=== PATIENT | male | born 1965 | race Two or more races ===

== ENCOUNTER 2016-09-19 14:28 | Emergency (ER) | payer MEDICAID ==
[2016-09-19 14:36] VITALS: RESP 18; TEMP 97.9; O2SAT 94
--- NOTE | 2016-09-19 14:55 | EDPHY ---
H & P Stated Complaint: persistant nosebleed. Sent here by [facility]. Time Seen by Provider: 09/19/16 14:39 HPI/ROS: CHIEF COMPLAINT: Left anterior epistaxis HISTORY OF PRESENT ILLNESS: The patient presents to the ED with intermittent left anterior epistaxis for the past day. The patient has had a history of intermittent epistaxis over the past month. He was seen in the emergency several weeks ago with epistaxis which resolved simply with Afrin. The patient is not anticoagulated. He does have a history of seizure disorder and takes Depakote. He denies recent fall or trauma. REVIEW OF SYSTEMS: A comprehensive 10 point review of systems is otherwise negative aside from elements mentioned in the history of present illness. Source: Patient Exam Limitations: No limitations - Personal History Current Tetanus Diphtheria and Acellular Pertussis (TDAP): Yes - Medical/Surgical History Hx Asthma: No Hx Chronic Respiratory Disease: No Hx Diabetes: No Hx Cardiac Disease: No Hx Renal Disease: No Hx Cirrhosis: No Hx Alcoholism: No Hx HIV/AIDS: No Hx Splenectomy or Spleen Trauma: No Other PMH: Epilepsy, hernia repair, high cholesterol - Social History Smoking Status: Former smoker - Physical Exam Exam: General Appearance: Alert, no distress Eyes: Pupils equal and round no pallor or injection ENT, Mouth: Bleeding from the left anterior septum Respiratory: There are no retractions, lungs are clear to auscultation Cardiovascular: Regular rate and rhythm Gastrointestinal: Abdomen is soft and nontender, no masses, bowel sounds normal Neurological: A&O, normal motor function, normal sensory exam, normal cranial nerves Skin: Warm and dry, no rashes Musculoskeletal: Neck is supple nontender Extremities: symmetrical, full range of motion Constitutional: Initial Vital Signs Temperature (C) 36.6 C 09/19/16 14:29 Heart Rate 74 09/19/16 14:29 Respiratory Rate 18 09/19/16 14:29 Blood Pressure 141/105 H 09/19/16 14:29 O2 Sat (%) 94 09/19/16 14:29 O2 Delivery Mode Room Air Allergies/Adverse Reactions: No Known Allergies Allergy (Unverified 09/13/16 22:10) Home Medications: Medication Instructions Recorded Carbamazepine 01/26/16 Medical Decision Making Procedures: Procedure: Epistaxis control. Indication: nosebleed not controlled by direct pressure. Risks, benefits, alternatives discussed with patient and consent obtained. The left nares was anesthetized with 4% lidocaine with epinephrine. The anterior epistaxis was identified. The patient was treated with vaso constriction and attempted silver nitrate cautery x4. The patient did have what appeared to be bleeding from a nasal polyp. The patient did have placement of a 7 cm anterior rhino rocket packing. Following the procedure the patient was re-examined and the bleeding was well controlled. The patient tolerated the procedure well. The procedure was performed by myself. ED Course/Re-evaluation: The patient presents to the ED with anterior epistaxis from what appears to be a nasal polyp. I did attempt silver nitrate cautery x4 however there continued to be ongoing bleeding. This necessitated the placement of an anterior packing. The patient has been instructed to leave the packing in for the rest of the week. He should contact our on-call ENT physician tomorrow to schedule a follow-up visit for packing removal. He has been instructed through the sociology instructor that the packing does need to be removed in the next 2-3 days. Differential Diagnosis: Differential diagnosis considered includes anterior epistaxis, posterior epistaxis, critical anemia - Data Points Medications Given: Discontinued Medications Lidocaine HCl (Lidocaine Hcl 4% Topical Solution) 4 ml TP EDNOW ONE Stop: 09/19/16 15:00 Last Admin: 09/19/16 15:04 Dose: 4 ml Oxymetazoline HCl (Afrin Nasal [place]) 2 sprays EACHNARE EDNOW ONE Stop: 09/19/16 14:59 Last Admin: 09/19/16 15:04 Dose: 2 spray Silver Nitrate/Potassium Nitrate (Silver Nitrate Applicator) 4 each TP EDNOW ONE Stop: 09/19/16 14:59 Last Admin: 09/19/16 15:04 Dose: 4 each Departure - Departure Disposition: Home, Routine, Self-Care Clinical Impression: Epistaxis Condition: Good Instructions: Nosebleed (ED) Additional Instructions: 1. Please contact the Ear Nose Throat physician you have been referred to tomorrow morning to schedule an ER follow-up visit in the next 1-2 days. If you have any problem making that appointment. Please contact the emergency department between the hours of 9 and 5:00 a.m. and asked to speak to the director of casework department. The telephone number the emergency department is [phone]. 2. Please leave the packing in until your seen by the ENT physician. The packing needs to be removed by the end of this week. 1. Por favor contacte al medico de [facility] al cual fue referido manana por la manana para programar jacinda moisés de seguimiento del cuarto de emergencias en 1-2 major. Si tiene problemas al programar la moisés. Por favor contacte al departamento de emergencias entre las 9 y 5:00 y pida hablar con la trabajadora social. El aakash de telefono del departamento de emergencias es [phone]. 2.Por favor deje el tapon nasal puesto hasta que sea visto por el medico de [facility]. El tapon nasal necesita ser removido al final de la semana. Referrals: Maciej Hines MD [Medical Doctor] - As per Instructions Print Language: Czech
[2016-09-19] MEDS ORDERED: OXYMETAZOLINE 30 ML NASAL SPRAY EACHNARE ONE (14:58)
[2016-09-19] MEDS ORDERED: SILVER NITRATE APPLICATOR 1 APPL TP ONE (14:58)
[2016-09-19] MEDS ORDERED: LIDOCAINE HCL 4% TOPICAL SOLN 50ML TP ONE (14:59)
[2016-09-19 16:30] VITALS: BP 138/90; PULSE 72
== END 2016-09-19 16:30 | disposition home or self-care (01) ==
PROC: 2Y41X5Z Packing of Nasal Region using Packing Material (ICD-10-PCS; principal; 2016-09-19)
PROC: 095KXZZ Destruction of Nasal Mucosa and Soft Tissue, External Approach (ICD-10-PCS; 2016-09-19)
DX: R04.0 Epistaxis (principal); Z87.891 Personal history of nicotine dependence

== ENCOUNTER 2017-10-30 15:54 | Observation (INO) | payer MEDICAID ==
--- NOTE | 2017-10-30 16:40 | EDPHY ---
H & P Time Seen by Provider: 10/30/17 16:31 HPI/ROS: CHIEF COMPLAINT: Perirectal swelling HISTORY OF PRESENT ILLNESS: Patient started having symptoms 5 days ago. Today he is having trouble sitting standing or walking. Swelling and tender area on the right side of his buttock just beyond his anus. No testicular symptoms. No fever or chills. No drainage. Symptoms moderate to severe. Worse with pressure or walking. REVIEW OF SYSTEMS: Eye: no change in vision ENT: no sore throat Cardiac: no chest pain or syncope Pulmonary: no cough or SOB Abdomen: No vomiting or diarrhea, no abdominal pain Musculoskeletal: no back pain Skin: no rash Neuro: no headache Constitutional: no fever : no urinary symptoms A comprehensive 10 point review of systems is otherwise negative aside from elements mentioned in the history of present illness. PAST MEDICAL HISTORY: Epilepsy and hernia repair, high cholesterol, hypertension Social history: Drove himself here, nonsmoker General Appearance: Alert and conversant, cooperative. Eyes: No scleral icterus. ENT, Mouth: Normal mucous membranes. Respiratory: Normal respiratory effort, breath sounds equal, lungs are clear to auscultation. Cardiovascular: Regular rate and rhythm. Gastrointestinal: Abdomen is soft and non tender. Patient has a fist sized right side perirectal abscess with induration and fluctuance. Neurological: Alert, face symmetric, normal motor and sensory in extremities. Skin: Warm and dry, no rashes. Musculoskeletal: No peripheral edema. Psychiatric: Not agitated. Emergency Department course/MDM: 1639: Dr. Bartlett to see the patient in the ED. 1709: Admit to surgeon, operating room later tonight, no antibiotics. Smoking Status: Former smoker Constitutional: Initial Vital Signs Temperature (C) 36.8 C 10/30/17 15:54 Heart Rate 83 10/30/17 15:54 Respiratory Rate 16 10/30/17 15:54 Blood Pressure 148/91 H 10/30/17 15:54 O2 Sat (%) 93 10/30/17 15:54 O2 Delivery Mode Room Air Allergies/Adverse Reactions: No Known Allergies Allergy (Unverified 09/13/16 22:10) Home Medications: Medication Instructions Recorded Carbamazepine 01/26/16 Metoclopramide 10/30/17 Medical Decision Making Differential Diagnosis: Differential considered including but not limited to perirectal abscess, pilonidal cyst, perirectal cellulitis, Benny gangrene. - Data Points Laboratory Results: Laboratory Results 10/30/17 16:45 10/30/17 16:45 10/30/17 10/30/17 16:45 16:45 WBC 17.52 10^3/uL H 10^3/uL (3.80-9.50) RBC 4.69 10^6/uL 10^6/uL (4.40-6.38) Hgb 15.1 g/dL g/dL (13.7-17.5) Hct 44.3 % % (40.0-51.0) MCV 94.5 fL fL (81.5-99.8) MCH 32.2 pg pg (27.9-34.1) MCHC 34.1 g/dL g/dL (32.4-36.7) RDW 12.9 % % (11.5-15.2) Plt Count 169 10^3/uL 10^3/uL (150-400) MPV 12.0 fL H fL (8.7-11.7) Neut % (Auto) 73.0 % % (39.3-74.2) Lymph % (Auto) 17.1 % % (15.0-45.0) [place] % (Auto) 8.7 % % (4.5-13.0) Eos % (Auto) 0.5 % L % (0.6-7.6) Baso % (Auto) 0.3 % % (0.3-1.7) Nucleat RBC Rel Count 0.0 % % (0.0-0.2) Absolute Neuts (auto) 12.80 10^3/uL H 10^3/uL (1.70-6.50) Absolute Lymphs (auto) 2.99 10^3/uL 10^3/uL (1.00-3.00) Absolute Monos (auto) 1.52 10^3/uL H 10^3/uL (0.30-0.80) Absolute Eos (auto) 0.08 10^3/uL 10^3/uL (0.03-0.40) Absolute Basos (auto) 0.06 10^3/uL 10^3/uL (0.02-0.10) Absolute Nucleated RBC 0.00 10^3/uL 10^3/uL (0-0.01) Immature Gran % 0.4 % % (0.0-1.1) Immature Gran # 0.07 10^3/uL 10^3/uL (0.00-0.10) Sodium 141 mEq/L mEq/L (135-145) Potassium 4.4 mEq/L mEq/L (3.5-5.2) Chloride 104 mEq/L mEq/L (97-110) Carbon Dioxide 23 mEq/l mEq/l (22-31) Anion Gap 14 mEq/L mEq/L (8-16) BUN 23 mg/dL mg/dL (7-23) Creatinine 0.8 mg/dL mg/dL (0.7-1.3) Estimated GFR > 60 Glucose 95 mg/dL mg/dL (70-100) Calcium 9.5 mg/dL mg/dL (8.5-10.4) Departure - Departure Clinical Impression: Right perirectal abscess Condition: Good
[2017-10-30 16:53] LABS: PLATELET COUNT 169 10^3/uL (150-400)
--- NOTE | 2017-10-30 17:55 | GHP ---
[f rep st] PREOP HISTORY AND PHYSICAL DATE OF ADMISSION: 10/30/2017 CHIEF COMPLAINT: Perirectal pain. HISTORY OF PRESENT ILLNESS: This is a 52-year-old, otherwise fairly healthy male who presents with r ight-sided perirectal pain since Friday. Patient states that on Friday, he noticed a small grape siz ed boil on his right buttock and that over the week, it has gotten progressively worse, exponentially so over the last 24 hours. He states that over the week, it had gotten a little bit bigger but not to the point where he was not able to work. He states that over the last 24 hours, it has gotten muc h larger and much more red than previously. He worked today where he works in a [employer] and states that it was difficult for him to stay on his feet and do his job. He does endorse subjective fevers and chills, although a formal temperature was not taken. He denies ever having any history of this in e past, states that there has been no drainage from the area. He denies having any personal or famil y history of inflammatory bowel disease, and he has never had a colonoscopy. Other than the pain at the area and the subjective chills earlier, he has no complaints. PAST MEDICAL HISTORY: Epilepsy. PAST SURGICAL HISTORY: None. CURRENT MEDICATIONS: Include multiple antiepileptics. He was previously on metoprolol but not anymo re. ALLERGIES: None. REVIEW OF SYSTEMS: A full 10-point review was performed and unless stated above, is otherwise negati ve. PHYSICAL EXAMINATION: VITAL SIGNS: Temperature 36.8, blood pressure 148/91, heart rate 83, and he i s 93% on room air. CONSTITUTIONAL: He is in mild distress. He is uncomfortable. HEENT: Eyes, his pupils are equal, round, and reactive to light and accommodation. His extraocular movements are int act. Ears, nose, mouth, throat, dry mucous membranes. Hearing normal. Ears normal. No mucosal ulce rs. CARDIOVASCULAR: Regular rate and rhythm. No murmurs or gallops. RESPIRATORY: No respiratory distress, rales, or rhonchi. GI: Abdomen soft, with normal bowel sounds. RECTAL: He has a 4 x 3 ar ea of induration on the right buttock with underlying fluctuance. It is red and significantly tender to touch. Remainder of the digital rectal exam is normal. Normal tone, normal hemorrhoids. No kyle arent communication into the anal canal. SKIN: Warm. Other than the findings on the right buttock, is otherwise normal. MUSCULOSKELETAL: Full strength. No weakness, no tenderness. NEUROLOGIC: He is alert and oriented x3. Cranial nerves 2-12 are intact. He has no weakness, no numbness. PSYCH: He is interacting appropriately. He is not anxious. He is not encephalopathic. LYMPH/HEME/IMMUNOL OGIC: No cervical or supraclavicular lymphadenopathy. LABORATORY DATA: Leukocytosis to 17,000 with left shift. Chemistry is largely unremarkable. Bedsid e ultrasound, which was personally performed and interpreted, shows at least an area of 2 x 2 abscess just deep to the right buttock, not communicating with the anal canal. ASSESSMENT AND PLAN: A 52-year-old male with a gluteal abscess. I had a discussion with the patient in the emergency department regarding our options. I offered him incision and drainage in the emerg ency department versus incision and drainage in the operating room. Given its significant tenderness , the patient elects for operative drainage. His last oral intake was earlier this morning. I discu ssed the risks, benefits, and alternatives, and he wishes to proceed. Cultures will be taken in the operating room. It will be packed and he will have a 1-night hospital stay. /[id number]/MODL
[2017-10-30] MEDS ORDERED: BUPIVACAINE/EPI 0.5% 30 ML SDV ONE (21:25)
--- NOTE | 2017-10-30 21:25 | PDANEPAE ---
ANE History of Present Illness Patient presents for ann-rectal abscess drainage ANE Past Medical History - Cardiovascular History Hx Hypertension: Yes - Pulmonary History Hx Oxygen in Use at Home: No Hx Sleep Apnea: No - Endocrine History Hx Diabetes: No ANE Review of Systems Review of Systems: ANE Patient History - Allergies Allergies/Adverse Reactions: No Known Allergies Allergy (Unverified 09/13/16 22:10) - Home Medications Home medications: home medication list seen and reviewed Home Medications: Metoprolol Succinate Xr [Toprol Xl 100 mg (*)] 100 mg PO HS 10/30/17 [Last Taken 10/29/17] PHENobarbital [Phenobarbital] 100 mg PO HS 10/30/17 [Last Taken 10/29/17] Valproic Acid [Depakene 250MG (*)] 500 mg PO DAILY 10/30/17 [Last Taken 10/29/17 ] Valproic Acid [Depakene 250MG (*)] 750 mg PO HS 10/30/17 [Last Taken 10/29/17] carBAMazepine [Tegretol] 600 mg PO HS 10/30/17 [Last Taken 10/29/17] - NPO status NPO Status: no food or drink >8 hours NPO Since - Liquids (Date): 10/30/17 NPO Since - Liquids (Time): 13:30 NPO Since - Solids (Date): 10/30/17 NPO Since - Solids (Time): 13:30 - Anes Hx Anes Hx: no prior problems - Smoking Hx Smoking Status: Former smoker ANE Labs/Vital Signs - Labs Result Diagrams: 10/30/17 16:45 10/30/17 16:45 - Vital Signs Blood Pressure: 150/98 Heart Rate: 61 Respiratory Rate: 18 O2 Sat (%): 94 Height: 170.18 cm Weight: 95.254 kg ANE Physical Exam - Airway Neck exam: FROM Mallampati Score: Class 2 Mouth exam: normal dental/mouth exam - Pulmonary Pulmonary: no respiratory distress - Cardiovascular Cardiovascular: regular rate and rhythym - ASA Status ASA Status: II ANE Anesthesia Plan Anesthesia Plan: general endotracheal anesthesia (RBA discussed)
[2017-10-30] MEDS ORDERED: PROPOFOL 200 MG/20 ML VIAL ONE (21:29)
[2017-10-30] MEDS ORDERED: fentaNYL 100 MCG/2 ML INJ ONE (21:29)
[2017-10-30] MEDS ORDERED: LIDOCAINE 2% 5 ML SDV ONE (21:30)
[2017-10-30] MEDS ORDERED: SUCCINYLCHOLINE CHLORIDE 200 MG/10 ML SYR IVP ONE (21:32)
[2017-10-30] MEDS ORDERED: DESFLURANE 240 ML BOTTLE IH ONE (21:34)
[2017-10-30] MEDS ORDERED: ONDANSETRON 4 MG/2 ML VIAL ONE (22:01)
--- NOTE | 2017-10-30 22:18 | POSTOPPROG ---
Post Op Note Date of Operation: 10/30/17 Surgeon: Bradly Bartlett Anesthesiologist: Susan Anesthesia: GET(General Endotracheal) Pre-op Diagnosis: R gluteal abscess Post-op Diagnosis: same Procedure: EUA, I&D of abscess Findings: small 2x4 area, minimal purulent material Inf/Abcess present in the surg proc area at time of surgery?: Yes Depth: Deep Incisional (Fascial) EBL: Minimal Specimen(s): fluid for culture
[2017-10-30] MEDS ORDERED: ACETAMINOPHEN 325 MG TAB PO PRN (22:19)
[2017-10-30] MEDS ORDERED: HYDROmorphONE/DILAUDID 1 MG/ML INJ IVP PRN (22:19)
[2017-10-30] MEDS ORDERED: NALOXONE HCL 0.4 MG/ML INJ IVP PRN (22:26)
[2017-10-30] MEDS ORDERED: HYDROCODONE/APAP 5/325 TAB PO PRN (22:26)
[2017-10-30] MEDS ORDERED: LR 500 ML IV PRN (22:26)
[2017-10-30] MEDS ORDERED: ONDANSETRON 4 MG/2 ML VIAL IVP PRN (22:26)
[2017-10-30] MEDS ORDERED: OXYCODONE/APAP 5/325 TAB PO PRN (22:26)
[2017-10-30] MEDS ORDERED: fentaNYL 100 MCG/2 ML INJ IVP PRN (22:26)
--- NOTE | 2017-10-30 22:27 | POSTANESTH ---
Post Anesthetic Evaluation Cardiovascular Status: Similar to Pre-Op Cond Respiratory Status: Similar to Pre-op Cond. Level of Consciousness/Mental Status: Alert and Oriented Pain Control: Adequate, Prn Tx Ordered Nausea/Vomiting Control: Adequate, Prn Tx Ordered Complications Possibly Related to Anesthesia: None Noted
[2017-10-31] MEDS ORDERED: METOPROLOL SUCCINATE XR 100 MG TAB PO SCH (00:15)
[2017-10-31] MEDS ORDERED: carBAMazepine 200 MG TAB PO SCH (00:15)
[2017-10-31] MEDS ORDERED: VALPROIC ACID 250 MG CAP PO SCH ×2 (00:30→09:00)
[2017-10-31] MEDS ORDERED: PHENOBARBITAL 4 MG/ML PO SCH (00:30)
[2017-10-31] MEDS: IBUPROFEN 600 MG TAB PO SCH ×2 (05:14→13:05)
[2017-10-31] MEDS: HYDROCODONE/APAP 5/325 TAB PO PRN ×2 (07:54→15:05)
[2017-10-31] MEDS ORDERED: FLU VACC QS 2017-18 (3YR+)/PF 0.5 ML SYR (FLUARIX QUAD) IM ONE (12:17)
--- NOTE | 2017-10-31 13:16 | PDDCSUM ---
Discharge Summary Discharge Summary: DISCHARGE SUMMARY Date of Admission October 30 Date of Discharge October 31 DISCHARGE DIAGNOSES -right gluteal abscess HOSPITAL COURSE The patient was admitted from the ED and taken to the operating room where they underwent an uneventful examination under anesthesia and incision and drainage of right gluteal abscess. They were subsequently taken to the PACU and then the general medical floor. The hospital course was uneventful, their diet was advanced to a regular diet which was well tolerated and their pain was well controlled. They were discharged home in stable condition on the afternoon of the DISCHARGE MEDICATIONS All home medications restarted, the only new medication was [place] as needed for pain DISPOSITION Home FOLLOW UP Follow up with me in the office in 10-14 days for a general post-operative visit
--- NOTE | 2017-10-31 13:23 | GOP ---
[f rep st] OPERATIVE REPORT DATE OF OPERATION: 10/30/2017 SURGEON: Bradly Bartlett MD OCEAN IMPORT REPRESENTATIVE: None. ANESTHESIA: General endotracheal. ANESTHESIOLOGIST: Dr. Davis. PREOPERATIVE DIAGNOSIS: Gluteal abscess. POSTOPERATIVE DIAGNOSIS: Gluteal abscess. PROCEDURE PERFORMED: Examination under anesthesia, and incision and drainage of right gluteal absces s. FINDINGS: Cruciate incision made over the area of greatest induration. It tracked approximately 2 c m anteriorly. Wound completely opened up and packed with iodoform gauze after washout. SPECIMENS: Fluid for culture. ESTIMATED BLOOD LOSS: 10 cc. DESCRIPTION OF PROCEDURE: The patient was greeted in the preoperative suite with the assistance of a calender roll operator. Consent was signed after explaining the risks, benefits, and alternatives. He was then brought back to the operative suite, placed on the OR table in a supine position. After all anesthe aleah machines were on and functioning, a [employer] time-out was performed. After succ essful induction of general anesthesia, the patient was appropriately placed in candy-cane stirrups w ith all pressure points appropriately padded and his perirectal and gluteal area was prepped and drap ed in typical sterile fashion. I commenced the procedure by making a cruciate incision over the area of greatest induration. Just deep to this, about 3 cc of purulent fluid was encountered. cultures of this were taken. The area was then cleaned out. It appeared to track approximately 2-3 cm anteri dnaiel. This was opened up. The wound was then irrigated with a liter of warm normal saline, packed f or hemostasis and then repacked with quarter-inch iodoform gauze over which a sterile dressing was pl aced. He was then extubated in the operative suite and taken to PACU in satisfactory condition. DRAINS: None. COUNTS: All counts were reported as correct x2. /[id number]/MODL
[2017-10-31 14:57] VITALS: BP 116/65; PULSE 74; RESP 16; TEMP 98.5; O2SAT 95
== END 2017-10-31 15:40 | disposition home or self-care (01) ==
LOC: F1N 23:02
PROVIDERS: ADMIT Surgery; ATTEND Surgery
PROC: 0J990ZZ Drainage of Buttock Subcutaneous Tissue and Fascia, Open Approach (ICD-10-PCS; principal; 2017-10-30 21:30)
DX: L02.31 Cutaneous abscess of buttock (principal); G40.909 Epilepsy, unspecified, not intractable, without status epilepticus
CPT/HCPCS: 10060; 90471; 99285; G0378; G0008; J0330; J2405; J2704; J3010

== ENCOUNTER 2017-11-03 13:20 | Emergency (ER) | payer MEDICAID ==
[2017-11-03 13:30] VITALS: TEMP 96.8
--- NOTE | 2017-11-03 14:50 | EDPHY ---
H & P Stated Complaint: treated for perirectal abcess recently treat now concerned of another area Time Seen by Provider: 11/03/17 14:49 - Personal History Current Tetanus/Diphtheria Vaccine: Unsure Current Tetanus Diphtheria and Acellular Pertussis (TDAP): Unsure - Medical/Surgical History Hx Asthma: No Hx Chronic Respiratory Disease: No Hx Diabetes: No Hx Cardiac Disease: No Hx Renal Disease: No Hx Cirrhosis: No Hx Alcoholism: No Hx HIV/AIDS: No Hx Splenectomy or Spleen Trauma: No Other PMH: Epilepsy, hernia repair, high cholesterol, HTN. - Social History Smoking Status: Former smoker Constitutional: Initial Vital Signs Temperature (C) 36.0 C 11/03/17 13:26 Heart Rate 89 11/03/17 13:26 Respiratory Rate 16 11/03/17 13:26 Blood Pressure 123/100 H 11/03/17 13:26 O2 Sat (%) 97 11/03/17 13:26 O2 Delivery Mode Room Air Allergies/Adverse Reactions: No Known Allergies Allergy (Verified 11/03/17 13:23) Home Medications: Medication Instructions Recorded Metoprolol Succinate Xr [Toprol Xl 100 mg PO HS 10/30/17 100 mg (*)] PHENobarbital [Phenobarbital] 100 mg PO HS 10/30/17 Valproic Acid [Depakene 250MG (*)] 500 mg PO DAILY 10/30/17 Valproic Acid [Depakene 250MG (*)] 750 mg PO HS 10/30/17 carBAMazepine [Tegretol] 600 mg PO HS 10/30/17 Hydrocodone/APAP 5/325 [[place] 1 - 2 tab PO Q4HRS PRN #20 tab 10/31/17 5/325 (*)] Medical Decision Making ED Course/Re-evaluation: CHIEF COMPLAINT: Anal pain HISTORY OF PRESENT ILLNESS: This 52-year-old gentleman had a wreck abscess drained by Dr. Bradly Guillen on . He went home on Friday and thought he was doing quite well until the last couple of days when he feels like he is getting more pain and more swelling. He took a shower this morning and felt a large mass in the area where the drainage occurred. He came in for further evaluation. He denies fevers and chills. It hurts tremendously to sit but he is comfortable if he is lying down not putting pressure on it. He denies any other symptoms. REVIEW OF SYSTEMS: A 10 point review of systems was performed and is negative with the exception of the elements mentioned in the history of present illness. PHYSICAL EXAM: HR, BP, O2 Sat, RR. Temp noted General Appearance: Alert, well hydrated, appropriate, and non-toxic appearing. Head: Atraumatic without scalp tenderness or obvious injury Eyes: Pupils equal, round, reactive to light and accommodation, EOMI, no trauma , no injection. Ears: Clear bilaterally, no perforation, normal landmarks Nose: Atraumatic, no rhinorrhea, clear. Throat: There is no erythema or exudates, no lesions, normal tonsils, mucus membranes moist. Neck: Supple, 2+ carotid upstroke, nontender, no lymphadenopathy. Respiratory: No retractions, no distress, no wheezes, and no accessory muscle use. Lungs are clear to auscultation bilaterally. Cardiovascular: Regular rate and rhythm, no murmurs, rubs, or gallops. Bilateral carotid, radial, dorsalis pedis, and posterior tibial pulses intact. Good capillary refill all extremities. Gastrointestinal: Abdomen is soft, nontender, non-distended, no masses, no rebound, no guarding, no peritoneal signs. Musculoskeletal: Normal active ROM of all extremities, atraumatic. Neurological: Alert, appropriate, and interactive. The patient has normal DTRs and non-focal cranial nerves, motor, sensory, and cerebellar exam. Skin: Large reaccumulation of the perirectal abscess with erythema. I cannot express pus from the incision site. Swollen groin nodes in the femoral area on the right and the left. Otherwise, No rashes, good turgor, no nodules on palpation. Past medical history: Seizure disorder Past surgical history: Perirectal abscess drainage Family history: Noncontributory Social history: , employed, does not abuse tobacco drugs or alcohol DIFFERENTIAL DIAGNOSIS: Includes not limited to: Internal hemorrhoid, external thrombosed hemorrhoid, perirectal abscess, fistula MEDICAL DECISION MAKING: This patient has a reaccumulation of his rectal abscess on physical exam. I have given this patient 1 g of ertapenem and checking some labs. I've paged the surgeon who performed the procedure. 1615: Dr. Bartlett has seen this patient and cleaned the abscess. He has prescribed the patient an antibiotic. Return precautions provided; patient is comfortable with this plan. - Data Points Laboratory Results: Laboratory Results 11/03/17 15:30 11/03/17 15:30 18 18 15:30 15:30 WBC 12.67 10^3/uL H 10^3/uL (3.80-9.50) RBC 5.16 10^6/uL 10^6/uL (4.40-6.38) Hgb 16.6 g/dL g/dL (13.7-17.5) Hct 49.2 % % (40.0-51.0) MCV 95.3 fL fL (81.5-99.8) MCH 32.2 pg pg (27.9-34.1) MCHC 33.7 g/dL g/dL (32.4-36.7) RDW 12.7 % % (11.5-15.2) Plt Count 186 10^3/uL 10^3/uL (150-400) MPV 11.6 fL fL (8.7-11.7) Neut % (Auto) 73.3 % % (39.3-74.2) Lymph % (Auto) 17.0 % % (15.0-45.0) [place] % (Auto) 7.6 % % (4.5-13.0) Eos % (Auto) 1.1 % % (0.6-7.6) Baso % (Auto) 0.5 % % (0.3-1.7) Nucleat RBC Rel Count 0.0 % % (0.0-0.2) Absolute Neuts (auto) 9.29 10^3/uL H 10^3/uL (1.70-6.50) Absolute Lymphs (auto) 2.16 10^3/uL 10^3/uL (1.00-3.00) Absolute Monos (auto) 0.96 10^3/uL H 10^3/uL (0.30-0.80) Absolute Eos (auto) 0.14 10^3/uL 10^3/uL (0.03-0.40) Absolute Basos (auto) 0.06 10^3/uL 10^3/uL (0.02-0.10) Absolute Nucleated RBC 0.00 10^3/uL 10^3/uL (0-0.01) Immature Gran % 0.5 % % (0.0-1.1) Immature Gran # 0.06 10^3/uL 10^3/uL (0.00-0.10) Sodium 146 mEq/L H mEq/L (135-145) Potassium 4.5 mEq/L mEq/L (3.5-5.2) Chloride 107 mEq/L mEq/L (97-110) Carbon Dioxide 25 mEq/l mEq/l (22-31) Anion Gap 14 mEq/L mEq/L (8-16) BUN 20 mg/dL mg/dL (7-23) Creatinine 0.7 mg/dL mg/dL (0.7-1.3) Estimated GFR > 60 Glucose 96 mg/dL mg/dL (70-100) Calcium 9.7 mg/dL mg/dL (8.5-10.4) Medications Given: Discontinued Medications Ertapenem (Invanz) 1 gm IVP EDNOW ONE PRN Reason: Protocol Stop: 11/03/17 14:59 Last Admin: 11/03/17 15:28 Dose: 1 gm Departure - Departure Disposition: Home, Routine, Self-Care Clinical Impression: Post op infection Qualifiers: Encounter type: initial encounter Qualified Code(s): T81.4XXA - Infection following a procedure, initial encounter Condition: Good Instructions: . Infection Prevention, Abscess (ED) Additional Instructions: 1. Follow up with Dr. Bartlett 2. Take the antibiotics as prescribed. 3. Return to the Emergency Department for fever, redness, discharge from wound, increasing pain or other worsening of condition. Referrals: Bradly Bartlett MD [Medical Doctor] - As per Instructions
[2017-11-03] MEDS ORDERED: ERTAPENEM 1 GM VIAL IVP ONE (14:58)
[2017-11-03 15:40] LABS: PLATELET COUNT 186 10^3/uL (150-400)
[2017-11-03 16:42] VITALS: BP 124/85; PULSE 76; RESP 18; O2SAT 91
--- NOTE | 2017-11-06 14:15 | GCON ---
[f rep st] CONSULTATION DATE OF CONSULTATION: 11/03/2017 CHIEF COMPLAINT: Buttock pain. HISTORY OF PRESENT ILLNESS: This is a 52-year-old male who I took to the operating room this past for incision and drainage of a right gluteal abscess. The area was subsequently opened, packe d, and he was sent home the next day with instructions to remove the packing and follow up in clinic the following week. He presents to the emergency department today complaining of worsening pain and drainage at this site, stating that for the past couple of days he felt well, although started to fee l worse over the last 24 hours. He denies having any fevers or chills, but states that the pain that he was experiencing previously had recurred. Other than the pain and the drainage at the site, he h as no complaints. PAST MEDICAL HISTORY: Epilepsy. PAST SURGICAL HISTORY: I and D of right buttock performed last . CURRENT MEDICATIONS: Include multiple antiepileptics. ALLERGIES: None. REVIEW OF SYSTEMS: A full 10-point review was performed. PHYSICAL EXAMINATION: VITAL SIGNS: In the emergency department, temperature 36 even, blood pressure 123/100, heart rate 89, and he is 97% on room air. CONSTITUTIONAL: He is alert and oriented, not a nxious, but somewhat uncomfortable. HEENT: His pupils are equal, round, and reactive to light and a ccommodation. His extraocular movements are intact. Ears, nose, mouth, throat: Dry mucous membrane s. Hearing normal. Ears normal with no mucosal ulcers. CARDIOVASCULAR: He has a regular rate and rhythm without any murmurs. RESPIRATORY: He has no respiratory distress. No rales or rhonchi GI: Abdomen is soft. Normal bowel sounds. Nondistended. RECTAL: The area of previous incision and adriana inage on the right buttock is open and draining some purulent type fluid. Digital inspection of this shows that the tract remains open. I do not appreciate any unopened fluid cavities. It appears as though the tract is narrowed and likely not draining appropriately. SKIN: Warm. Other than the fin dings on the right buttock, is otherwise normal. MUSCULOSKELETAL: Full strength. No weakness. No tenderness. NEUROLOGIC: He is alert and oriented. His cranial nerves 2-12 are intact. He has no w eakness or numbness. PSYCHIATRIC: He is interacting appropriately. He is not anxious. He is not e ncephalopathic. LYMPHATIC/HEMATOLOGIC/IMMUNOLOGIC: No cervical, groin, or supraclavicular lymphadeno lamar is appreciated. LABORATORY DATA: Leukocytosis to 12,000. This is improved from 18,000 previously. H and H unremark able. BMP is unremarkable. ASSESSMENT/PLAN: 52-year-old male status post incision and drainage of right gluteal abscess. After evaluation of the patient in the emergency department, it appears as though it is not getting clean appropriately on an outpatient basis, likely secondary to the long tract, which after removal of the packing has not necessarily re-sealed, but is likely not getting drained appropriately. After discus asad with the patient, I feel that the best next step is to numb that area up and unroof the remainde r of the cavity so that they can drain appropriately as I do not appreciate any other areas of absces s or infection. He is in agreement with this. In the emergency department, I subsequently numbed the area up after performing a Organi zation time-out and prepping the area with Betadine and numbed it with 1% lidocaine. After successfu l anesthetization, I unroof the remainder of the cavity approximately 2 cm sharply. I then irrigated the area with 500 cc of sterile saline. Hemostasis was achieved with gentle pressure. The wound wa s then packed with sterile wet gauze, over which a dry dressing was placed. The patient tolerated th e procedure well. Estimated blood loss was 5 cc. No additional specimens were taken. The patient will subsequently be discharged home on oral antibiotics. I have asked him to shower, le ave the packing in place, and follow up with me in clinic in 2 days time, at which point in time, I w ill take the packing out, wash the area, and re-evaluate. He is in understanding of this. This whol e examination was performed with the aid of a live records supervisor so that the patient could understand ex actly what was happening. /[id number]/MODL
== END 2017-11-03 16:51 | disposition home or self-care (01) ==
DX: T81.4XXA Infection following a procedure, initial encounter (principal); I10 Essential (primary) hypertension; Z87.891 Personal history of nicotine dependence; Y82.8 Other medical devices associated with adverse incidents
CPT/HCPCS: 96374; J1335

== ENCOUNTER 2018-03-04 20:07 | Emergency (ER) | payer MEDICAID ==
[2018-03-04] MEDS ORDERED: NS 1,000 ML IV ONE ×2 (20:33)
[2018-03-04] MEDS ORDERED: ONDANSETRON 4 MG/2 ML VIAL IVP ONE (20:33)
--- NOTE | 2018-03-04 20:37 | EDPHY ---
H & P Stated Complaint: fever and diarrhea since lastnight Time Seen by Provider: 03/04/18 20:22 HPI/ROS: CHIEF COMPLAINT: Diarrhea, left thumb pain HISTORY OF PRESENT ILLNESS: The patient is a 52-year-old man who comes to the emergency department complaining of diarrhea for the last day. He states that he has not vomited but has felt nauseous. He has had several episodes of nonbloody diarrhea. He feels dehydrated. He has not been traveling out of the country. No fever. No rash. He does not recall eating any suspicious foods. He did have rotator cuff surgery about 2 weeks ago. He also complains of a splinter that is been in his left thumb for 3 days and is becoming increasingly painful. He states that it is right at the ulnar aspect of his finger nail. He is requesting that it be drained. It is very tender. REVIEW OF SYSTEMS: Constitutional: denies: chills, fever, recent illness, recent injury EENTM: denies: blurred vision, double vision, nose congestion Respiratory: denies: cough, shortness of breath Cardiac: denies: chest pain, irregular heart rate, lightheadedness, palpitations Gastrointestinal/Abdominal: See above denies: abdominal pain, vomiting, blood streaked stools Genitourinary: denies: dysuria, frequency, hematuria, pain Musculoskeletal: See above Skin: denies: lesions, rash, jaundice, bruising Neurological: denies: headache, numbness, paresthesia, tingling, dizziness, weakness Hematologic/Lymphatic: denies: blood clots, easy bleeding, easy bruising Immunologic/allergic: denies: HIV/AIDS, transplant EXAM: GENERAL: Well-appearing, well-nourished and in no acute distress. HEAD: Atraumatic, normocephalic. EYES: Pupils equal round and reactive to light, extraocular movements intact, sclera anicteric, conjunctiva are normal. ENT: TMs normal, nares patent, oropharynx clear without exudates. Moist mucous membranes. NECK: Normal range of motion, supple without lymphadenopathy or JVD. LUNGS: Breath sounds clear to auscultation bilaterally and equal. No wheezes rales or rhonchi. HEART: Regular rate and rhythm without murmurs, rubs or gallops. ABDOMEN: Soft, nontender, normoactive bowel sounds. No guarding, no rebound. No masses appreciated. BACK: No CVA tenderness, no spinal tenderness, step-offs or deformities EXTREMITIES: Left thumb with tenderness to the lateral nail/skin junction. No obvious erythema or fluctuance. Normal range of motion, no pitting or edema. No clubbing or cyanosis. NEUROLOGICAL: Cranial nerves II through XII grossly intact. Normal speech, normal gait. 5/5 strength, normal movement in all extremities, normal sensation PSYCH: Normal mood, normal affect. SKIN: Warm, dry, normal turgor, no visible rashes or lesions. Source: Patient - Personal History Current Tetanus/Diphtheria Vaccine: No Current Tetanus Diphtheria and Acellular Pertussis (TDAP): No - Medical/Surgical History Hx Asthma: No Hx Chronic Respiratory Disease: No Hx Diabetes: No Hx Cardiac Disease: No Hx Renal Disease: No Hx Cirrhosis: No Hx Alcoholism: No Hx HIV/AIDS: No Hx Splenectomy or Spleen Trauma: No Other PMH: Epilepsy, hernia repair, high cholesterol, HTN. - Family History Significant Family History: No pertinent family hx - Social History Smoking Status: Former smoker Alcohol Use: Sober Drug Use: None Constitutional: Initial Vital Signs Temperature (C) 37.6 C 03/04/18 20:12 Heart Rate 125 H 03/04/18 20:12 Respiratory Rate 16 03/04/18 20:12 Blood Pressure 137/87 H 03/04/18 20:12 O2 Sat (%) 93 03/04/18 20:12 O2 Delivery Mode Room Air O2 (L/minute) 1 Allergies/Adverse Reactions: No Known Allergies Allergy (Verified 03/04/18 20:15) Home Medications: Medication Instructions Recorded Metoprolol Succinate Xr [Toprol Xl 100 mg PO HS 10/30/17 100 mg (*)] PHENobarbital [Phenobarbital] 100 mg PO HS 10/30/17 Valproic Acid [Depakene 250MG (*)] 500 mg PO DAILY 10/30/17 Valproic Acid [Depakene 250MG (*)] 750 mg PO HS 10/30/17 carBAMazepine [Tegretol] 600 mg PO HS 10/30/17 Metoclopramide [Reglan 10 mg tab 10 mg PO BID PRN 7 Days tab 03/04/18 (RX)] Medical Decision Making Procedures: I provided the patient with a digital block 1% lidocaine for anesthesia. I then drained the paronychia of his thumb. 1 cc of purulence was obtained. A small splinter was removed successfully. The patient tolerated the procedure well. ED Course/Re-evaluation: 10 p.m. the patient is feeling much better. He is asking to go home. He has not had any more episodes of nausea or diarrhea. He has been hydrated. He is requesting nausea medicine to take at home as well as headache medicine. He states that he has developed a mild headache. He is also requesting a note for work. Differential Diagnosis: Partial list of the Differential diagnosis considered include but were not limited to; gastritis, food poisoning, dehydration and although unlikely based on the history and physical exam, I also considered obstruction, ischemia, appendicitis, diverticulitis. I discussed these differential diagnoses and the plan with the patient as well as the usual and expected course. The patient understands that the diagnosis is provisional and that in medicine we are not always correct and that further workup is often warranted. Usual and customary warnings were given. All of the patient's questions were answered. The patient was instructed to return to the emergency department should the symptoms at all worsen or return, otherwise to followup with the physician as we discussed. - Data Points Laboratory Results: Laboratory Results 03/04/18 20:38 03/04/18 20:38 Medications Given: Discontinued Medications Acetaminophen (Tylenol) 1,000 mg PO EDNOW ONE Stop: 03/04/18 21:30 Last Admin: 03/04/18 21:32 Dose: 1,000 mg Sodium Chloride (Ns) 1,000 mls @ 0 mls/hr IV EDNOW ONE; Wide Open PRN Reason: Protocol Stop: 03/04/18 20:34 Last Admin: 03/04/18 20:38 Dose: 1,000 mls Sodium Chloride (Ns) 1,000 mls @ 0 mls/hr IV EDNOW ONE; Wide Open PRN Reason: Protocol Stop: 03/04/18 20:34 Last Admin: 03/04/18 20:39 Dose: 1,000 mls Ondansetron HCl (Zofran) 4 mg IVP EDNOW ONE Stop: 03/04/18 20:34 Last Admin: 03/04/18 20:44 Dose: 4 mg Departure - Departure Disposition: Home, Routine, Self-Care Clinical Impression: Dehydration Diarrhea Qualifiers: Diarrhea type: unspecified type Qualified Code(s): R19.7 - Diarrhea, unspecified Condition: Fair Instructions: Metoclopramide (By mouth), Dehydration (ED), Acute Diarrhea (ED) Referrals: Yasmin Ayala [Primary Care Provider] - 2-3 days, if not improved Stand Alone Forms: Work Excuse Prescriptions: Metoclopramide [Reglan 10 mg tab (RX)] 10 mg PO BID PRN 7 Days tab PRN Reason: *Nausea & Vomiting
[2018-03-04 20:54] LABS: PLATELET COUNT 184 10^3/uL (150-400)
[2018-03-04] MEDS ORDERED: ACETAMINOPHEN 500 MG TAB PO ONE (21:29)
[2018-03-04 22:24] VITALS: BP 138/94
== END 2018-03-04 22:37 | disposition home or self-care (01) ==
DX: R19.7 Diarrhea, unspecified (principal); E86.0 Dehydration; E86.9 Volume depletion, unspecified; I10 Essential (primary) hypertension; Z87.891 Personal history of nicotine dependence
CPT/HCPCS: 96374; J2405

== ENCOUNTER 2018-06-25 15:36 | Emergency (ER) | payer MEDICAID ==
--- NOTE | 2018-06-25 16:06 | EDPHY ---
H & P Time Seen by Provider: 06/25/18 15:48 HPI/ROS: Chief complaint. Rib pain HPI. 53-year-old male presents with right lateral chest pain for 4 days. He denies trauma or injury. Does not think he had a seizure as a cause. It hurts to press on and it hurts to move and hurts to take a deep breath. He feels short of breath. It has gotten worse since yesterday. No fever cough. No nausea vomiting or diarrhea. No leg symptoms. No similar symptoms previously. ROS 10 systems were reviewed and negative with the exception of the elements mentioned in the history of present illness Past Medical/Surgical History: Seizure disorder, hernia repair, dyslipidemia, hypertension Social History: , nonsmoker, no alcohol Smoking Status: Former smoker Physical Exam: General Appearance: Alert pleasant well-developed male mild distress vital signs are stable Eyes: Pupils equal and round no pallor or injection. ENT, Mouth: Mucous membranes are moist. Respiratory: There are no retractions, lungs are clear to auscultation. Cardiovascular: Regular rate and rhythm. Gastrointestinal: Abdomen is soft and nontender, no masses, bowel sounds normal. Neurological: Awake and alert, sensory and motor exams grossly normal. Skin: Warm and dry, no rashes. Musculoskeletal: Neck is supple nontender. Tender to palpation right lateral rib line at approximately T11. Extremities symmetrical, full range of motion. Psychiatric: Patient is oriented X 3, there is no agitation. Constitutional: Initial Vital Signs Temperature (C) 36.5 C 06/25/18 15:41 Heart Rate 71 06/25/18 15:41 Respiratory Rate 16 06/25/18 15:41 Blood Pressure 112/70 06/25/18 15:41 O2 Sat (%) 94 06/25/18 15:41 O2 Delivery Mode Room Air Allergies/Adverse Reactions: No Known Allergies Allergy (Verified 06/25/18 15:41) Home Medications: Medication Instructions Recorded Metoprolol Succinate Xr [Toprol Xl 100 mg PO HS 10/30/17 100 mg (*)] PHENobarbital [Phenobarbital] 100 mg PO HS 10/30/17 Valproic Acid [Depakene 250MG (*)] 500 mg PO DAILY 10/30/17 Valproic Acid [Depakene 250MG (*)] 750 mg PO HS 10/30/17 carBAMazepine [Tegretol] 600 mg PO HS 10/30/17 Metoclopramide [Reglan 10 mg tab 10 mg PO BID PRN 7 Days tab 03/04/18 (RX)] Medical Decision Making - Diagnostics Imaging Results: Imaging Impressions Chest X-Ray 06/25/18 16:15 Impression: Stable since March 2015. Nothing acute identified. Chest x-ray interpreted by me appears nonacute. No fracture or pneumothorax seen Procedures: IV normal saline ED Course/Re-evaluation: Re-evaluation 5:50 p.m.. Patient is stable. The patient and I discussed imaging and lab results. We discussed treatment plan including criteria for return importance follow-up further evaluation. He expresses understanding and agreement Differential Diagnosis: I considered rib fracture, pneumothorax, pulmonary embolus, abnormal liver function, kidney stone, kidney infection - Data Points Laboratory Results: Laboratory Results 06/25/18 16:30 06/25/18 16:30 06/25/18 06/25/18 06/25/18 16:30 16:30 16:30 WBC 10.49 10^3/uL H 10^3/uL (3.80-9.50) RBC 5.04 10^6/uL 10^6/uL (4.40-6.38) Hgb 16.0 g/dL g/dL (13.7-17.5) Hct 46.4 % % (40.0-51.0) MCV 92.1 fL fL (81.5-99.8) MCH 31.7 pg pg (27.9-34.1) MCHC 34.5 g/dL g/dL (32.4-36.7) RDW 12.5 % % (11.5-15.2) Plt Count 148 10^3/uL L 10^3/uL (150-400) MPV 11.3 fL fL (8.7-11.7) Neut % (Auto) 52.1 % % (39.3-74.2) Lymph % (Auto) 35.9 % % (15.0-45.0) [place] % (Auto) 10.2 % % (4.5-13.0) Eos % (Auto) 1.0 % % (0.6-7.6) Baso % (Auto) 0.5 % % (0.3-1.7) Nucleat RBC Rel Count 0.0 % % (0.0-0.2) Absolute Neuts (auto) 5.46 10^3/uL 10^3/uL (1.70-6.50) Absolute Lymphs (auto) 3.77 10^3/uL H 10^3/uL (1.00-3.00) Absolute Monos (auto) 1.07 10^3/uL H 10^3/uL (0.30-0.80) Absolute Eos (auto) 0.11 10^3/uL 10^3/uL (0.03-0.40) Absolute Basos (auto) 0.05 10^3/uL 10^3/uL (0.02-0.10) Absolute Nucleated RBC 0.00 10^3/uL 10^3/uL (0-0.01) Immature Gran % 0.3 % % (0.0-1.1) Immature Gran # 0.03 10^3/uL 10^3/uL (0.00-0.10) D-Dimer 0.41 ug/mLFEU ug/mLFEU (0.00-0.50) Sodium 139 mEq/L mEq/L (135-145) Potassium 4.8 mEq/L mEq/L (3.3-5.0) Chloride 100 mEq/L mEq/L (97-110) Carbon Dioxide 25 mEq/l mEq/l (22-31) Anion Gap 14 mEq/L mEq/L (6-14) BUN 21 mg/dL mg/dL (7-23) Creatinine 0.9 mg/dL mg/dL (0.7-1.3) Estimated GFR > 60 Glucose 94 mg/dL mg/dL (70-100) Calcium 9.7 mg/dL mg/dL (8.5-10.4) Total Bilirubin 0.4 mg/dL mg/dL (0.1-1.4) Conjugated Bilirubin 0.4 mg/dL mg/dL (0.0-0.5) Unconjugated Bilirubin 0.0 mg/dL mg/dL (0.0-1.1) AST 26 IU/L IU/L (17-59) ALT 29 IU/L IU/L (21-72) Alkaline Phosphatase 105 IU/L IU/L (38-126) Total Protein 7.6 g/dL g/dL (6.3-8.2) Albumin 4.3 g/dL g/dL (3.5-5.0) Urine Color Urine Appearance Urine pH Ur Specific [place] Urine Protein Urine Ketones Urine Blood Urine Nitrate Urine Bilirubin Urine Urobilinogen Ur Leukocyte Esterase Urine RBC Urine WBC Ur Epithelial Cells Urine Mucus Urine Glucose 06/25/18 16:21 WBC RBC Hgb Hct MCV MCH MCHC RDW Plt Count MPV Neut % (Auto) Lymph % (Auto) [place] % (Auto) Eos % (Auto) Baso % (Auto) Nucleat RBC Rel Count Absolute Neuts (auto) Absolute Lymphs (auto) Absolute Monos (auto) Absolute Eos (auto) Absolute Basos (auto) Absolute Nucleated RBC Immature Gran % Immature Gran # D-Dimer Sodium Potassium Chloride Carbon Dioxide Anion Gap BUN Creatinine Estimated GFR Glucose Calcium Total Bilirubin Conjugated Bilirubin Unconjugated Bilirubin AST ALT Alkaline Phosphatase Total Protein Albumin Urine Color YELLOW Urine Appearance CLEAR Urine pH 7.0 (5.0-7.5) Ur Specific [place] 1.018 (1.002-1.030) Urine Protein NEGATIVE (NEGATIVE) Urine Ketones NEGATIVE (NEGATIVE) Urine Blood NEGATIVE (NEGATIVE) Urine Nitrate NEGATIVE (NEGATIVE) Urine Bilirubin NEGATIVE (NEGATIVE) Urine Urobilinogen NEGATIVE EU EU (0.2-1.0) Ur Leukocyte Esterase NEGATIVE (NEGATIVE) Urine RBC 1-3 /hpf /hpf (0-3) Urine WBC 1-3 /hpf /hpf (0-3) Ur Epithelial Cells NONE SEEN /lpf /lpf (NONE-1+) Urine Mucus TRACE /lpf /lpf (NONE-1+) Urine Glucose NEGATIVE (NEGATIVE) Medications Given: Discontinued Medications Sodium Chloride (Ns) 1,000 mls @ 0 mls/hr IV ONCE ONE; Wide Open PRN Reason: Protocol Stop: 06/25/18 16:16 Last Admin: 06/25/18 16:37 Dose: 1,000 mls Departure - Departure Disposition: Home, Routine, Self-Care Clinical Impression: Chest pain Qualifiers: Chest pain type: chest pain on breathing Qualified Code(s): R07.1 - Chest pain on breathing; R07.81 - Pleurodynia Condition: Good Instructions: Chest Wall Pain (ED) Additional Instructions: Heat to sore area of chest wall. Tylenol 1000 mg every 4-6 hours, ibuprofen 600 mg every 6 hr as needed for discomfort Return for worsening symptoms Recheck in 2-3 days if not improving Referrals: Yasmin Ayala [Primary Care Provider] - 2-3 days, if not improved
[2018-06-25] MEDS ORDERED: NS 1,000 ML IV ONE (16:15)
[2018-06-25 16:39] LABS: PLATELET COUNT 148 10^3/uL (150-400)
[2018-06-25 18:06] VITALS: BP 123/66
== END 2018-06-25 18:05 | disposition home or self-care (01) ==
DX: R07.81 Pleurodynia (principal); E86.9 Volume depletion, unspecified

== ENCOUNTER 2018-10-21 18:51 | Emergency (ER) | payer MEDICAID ==
--- NOTE | 2018-10-21 19:07 | EDPHY ---
H & P Stated Complaint: intermiitant right sided CP .SOB . CP for 3 or 4 days Time Seen by Provider: 10/21/18 19:07 HPI/ROS: CHIEF COMPLAINT: [ ] HISTORY OF PRESENT ILLNESS: [Need 4: Location, Duration, Severity, Quality, Context, Timing Modifying Factors, Associated S&S] REVIEW OF SYSTEMS: A comprehensive 10 point review of systems is otherwise negative aside from elements mentioned in the history of present illness. - Personal History Current Tetanus/Diphtheria Vaccine: Unsure Current Tetanus Diphtheria and Acellular Pertussis (TDAP): Unsure - Medical/Surgical History Hx Asthma: No Hx Chronic Respiratory Disease: No Hx Diabetes: No Hx Cardiac Disease: Yes Hx Renal Disease: No Hx Cirrhosis: No Hx Alcoholism: No Hx HIV/AIDS: No Hx Splenectomy or Spleen Trauma: No Other PMH: Epilepsy, hernia repair, high cholesterol, HTN. - Social History Smoking Status: Former smoker - Physical Exam Exam: General Appearance: [Alert, no distress] Eyes: [Pupils equal and round no pallor or injection] ENT, Mouth: [Mucous membranes moist] Respiratory: [There are no retractions, lungs are clear to auscultation] Cardiovascular: [Regular rate and rhythm] Gastrointestinal: [Abdomen is soft and nontender, no masses, bowel sounds normal] Neurological: [A&O, normal motor function, normal sensory exam, normal cranial nerves] Skin: [Warm and dry, no rashes] Musculoskeletal: [Neck is supple nontender] Extremities: [symmetrical, full range of motion] Psychiatric: [Patient is oriented X 3, there is no agitation] Constitutional: Initial Vital Signs Temperature (C) 36.6 C 10/21/18 18:53 Heart Rate 63 10/21/18 18:53 Respiratory Rate 16 10/21/18 18:53 Blood Pressure 150/89 H 10/21/18 18:53 O2 Sat (%) 94 10/21/18 18:53 O2 Delivery Mode Room Air Allergies/Adverse Reactions: No Known Allergies Allergy (Verified 10/21/18 18:57) Home Medications: Medication Instructions Recorded Metoprolol Succinate Xr [Toprol Xl 100 mg PO HS 10/30/17 100 mg (*)] PHENobarbital [Phenobarbital] 100 mg PO HS 10/30/17 Valproic Acid [Depakene 250MG (*)] 500 mg PO DAILY 10/30/17 Valproic Acid [Depakene 250MG (*)] 750 mg PO HS 10/30/17 carBAMazepine [Tegretol] 600 mg PO HS 10/30/17 Metoclopramide [Reglan 10 mg tab 10 mg PO BID PRN 7 Days tab 03/04/18 (RX)] Departure - Departure Referrals: [facility] [Other] - As per Instructions
[2018-10-21] MEDS ORDERED: KETOROLAC 15 MG/1 ML SDV IVP ONE (19:18)
--- NOTE | 2018-10-21 19:19 | EDPHY ---
H & P Stated Complaint: intermiitant right sided CP .SOB . CP for 3 or 4 days - Personal History Current Tetanus/Diphtheria Vaccine: Unsure Current Tetanus Diphtheria and Acellular Pertussis (TDAP): Unsure - Medical/Surgical History Hx Asthma: No Hx Chronic Respiratory Disease: No Hx Diabetes: No Hx Cardiac Disease: Yes Hx Renal Disease: No Hx Cirrhosis: No Hx Alcoholism: No Hx HIV/AIDS: No Hx Splenectomy or Spleen Trauma: No Other PMH: Epilepsy, hernia repair, high cholesterol, HTN. - Social History Smoking Status: Former smoker Time Seen by Provider: 10/21/18 19:07 HPI/ROS: CHIEF COMPLAINT: Right-sided chest pain x3 days HISTORY OF PRESENT ILLNESS: 53-year-old male complaining of 3 days of atraumatic right-sided chest pain reproducible with movement of the right shoulder/upper extremity. No trauma. No dyspnea or chest pain with exertion. No radiation pain. No syncope or near syncope. No back pain. No peripheral edema. No cough. No hemoptysis. PRIMARY CARE PROVIDER: REVIEW OF SYSTEMS: 10 systems reviewed and negative with the exception of the elements mentioned in the history of present illness PAST MEDICAL & SURGICAL HISTORY: history of epilepsy. Hyperlipidemia. Hypertension. Herniorrhaphy. No history of coronary artery disease. SOCIAL HISTORY: Nonsmoker. No drug use. No cocaine use. PHYSICAL EXAM (Prior to examination, patient consented to physical exam, hands were washed and my usual and customary physical exam procedures followed) 1) GENERAL: Well-developed, well-nourished, alert and oriented. Appears to be in no acute distress. 2) HEAD: Normocephalic, atraumatic 3) HEENT: Pupils equal, round, reactive to light bilaterally. Sclera anicteric. Nasopharynx, oropharynx, clear, no lesions. Moist Mucous membranes. 4) NECK: Full range of motion, no meningeal signs. Negative carotid bruit. 5) LUNGS: Clear auscultation bilaterally, no wheezes, no rhonchi, no retractions. No lesions , no vesicles to the chest. 6) HEART: Regular rate and rhythm, no murmur, no heave, no gallop. 7) ABDOMEN: No guarding, no rebound, no focal tenderness, negative McBurney's, negative Henry's, negative Rovsing's, negative peritoneal sign, 8) MUSCULOSKELETAL: With range of motion of the right shoulder the patient has reproducible right-sided chest pain. Brisk and equal pulses bilateral upper extremities capillary refill less than 2 sec. Otherwise, Moving all extremities, no focal areas of tenderness, no obvious trauma. No peripheral edema or discoloration. Negative Homans no palpable cord. 9) BACK: No CVA tenderness, no midline vertebral tenderness, no fluctuance, no step-off, no obvious trauma, no visual or palpable abnormality. 10) SKIN: No rash, no petechiae. 11) Psychiatric: Patient is oriented X 3, there is no agitation. DIFFERENTIAL DIAGNOSIS: In no particular order, including but not limited to myocardial ischemia, pulmonary embolus, chest wall pain, pleural inflammation and pulmonary infectious causes. (Sarah Amanda) Constitutional: Initial Vital Signs Temperature (C) 36.6 C 10/21/18 18:53 Heart Rate 63 10/21/18 18:53 Respiratory Rate 16 10/21/18 18:53 Blood Pressure 150/89 H 10/21/18 18:53 O2 Sat (%) 94 10/21/18 18:53 O2 Delivery Mode Room Air Allergies/Adverse Reactions: No Known Allergies Allergy (Verified 10/21/18 18:57) Home Medications: Medication Instructions Recorded Metoprolol Succinate Xr [Toprol Xl 100 mg PO HS 10/30/17 100 mg (*)] PHENobarbital [Phenobarbital] 100 mg PO HS 10/30/17 Valproic Acid [Depakene 250MG (*)] 500 mg PO DAILY 10/30/17 Valproic Acid [Depakene 250MG (*)] 750 mg PO HS 10/30/17 carBAMazepine [Tegretol] 600 mg PO HS 10/30/17 Metoclopramide [Reglan 10 mg tab 10 mg PO BID PRN 7 Days tab 03/04/18 (RX)] Cyclobenzaprine [Flexeril 10 MG 10 mg PO TID #15 tab 10/21/18 (RX)] Medical Decision Making - Diagnostics EKG Interpretation: EKG: Complete interpretation has been separately recorded in the [email or web address] archive. Summary impression: Sinus rhythm, rate 56 (Zach Park) Imaging Results: Imaging Impressions Chest X-Ray 10/21/18 19:17 Impression: Nothing acute identified. Imaging Impressions Chest X-Ray 10/21/18 19:17 Impression: Nothing acute identified. Images myself (Sarah Amanda) ED Course/Re-evaluation: 8:27 p.m.: Re-evaluation. Discussed with the patient his diagnostic results which include normal sinus EKG, negative troponin symptoms have been present for 3 days as well as negative D-dimer which I think adequately excludes pulmonary embolus in this patient who I have a moderate pretest suspicion. This time I do not think that the benefits of CT angiography outweigh the risks. Patient has a low risk Heart score. Plan will be discharged at this time. He will be given Flexeril prescription. No indication for antibiotics in absence of infiltrate chest x-ray, no URI symptoms. Feels comfortable being discharged. My usual and customary discharge precautions instructions provided. Care of patient under supervision of primary Supervising physician Dr Park with whom I discussed case. (Sarah Amanda) Other Provider: PHYSICIAN DOCUMENTATION: The patient was evaluated and managed by the Physician Bow Machine Operator. My co- signature indicates that I have reviewed this chart and I agree with the findings and plan of care as documented. I am the secondary supervising physician. (Zach Park) - Data Points Laboratory Results: Laboratory Results 10/21/18 19:15 10/21/18 19:15 10/21/18 10/21/18 10/21/18 19:15 19:15 19:15 WBC 11.14 10^3/uL H 10^3/uL (3.80-9.50) RBC 4.89 10^6/uL 10^6/uL (4.40-6.38) Hgb 15.5 g/dL g/dL (13.7-17.5) Hct 46.2 % % (40.0-51.0) MCV 94.5 fL fL (81.5-99.8) MCH 31.7 pg pg (27.9-34.1) MCHC 33.5 g/dL g/dL (32.4-36.7) RDW 12.5 % % (11.5-15.2) Plt Count 177 10^3/uL 10^3/uL (150-400) MPV 11.5 fL fL (8.7-11.7) Neut % (Auto) 62.1 % % (39.3-74.2) Lymph % (Auto) 28.3 % % (15.0-45.0) Republic % (Auto) 8.3 % % (4.5-13.0) Eos % (Auto) 0.5 % L % (0.6-7.6) Baso % (Auto) 0.4 % % (0.3-1.7) Nucleat RBC Rel Count 0.0 % % (0.0-0.2) Absolute Neuts (auto) 6.93 10^3/uL H 10^3/uL (1.70-6.50) Absolute Lymphs (auto) 3.15 10^3/uL H 10^3/uL (1.00-3.00) Absolute Monos (auto) 0.92 10^3/uL H 10^3/uL (0.30-0.80) Absolute Eos (auto) 0.06 10^3/uL 10^3/uL (0.03-0.40) Absolute Basos (auto) 0.04 10^3/uL 10^3/uL (0.02-0.10) Absolute Nucleated RBC 0.00 10^3/uL 10^3/uL (0-0.01) Immature Gran % 0.4 % % (0.0-1.1) Immature Gran # 0.04 10^3/uL 10^3/uL (0.00-0.10) D-Dimer 0.47 ug/mLFEU ug/mLFEU (0.00-0.50) Sodium 137 mEq/L mEq/L (135-145) Potassium 4.5 mEq/L mEq/L (3.5-5.2) Chloride 108 mEq/L mEq/L (97-110) Carbon Dioxide 22 mEq/l mEq/l (22-31) Anion Gap 7 mEq/L mEq/L (6-14) BUN 29 mg/dL H mg/dL (7-23) Creatinine 0.7 mg/dL mg/dL (0.7-1.3) Estimated GFR > 60 Glucose 95 mg/dL mg/dL (70-100) Calcium 9.4 mg/dL mg/dL (8.5-10.4) Total Bilirubin 0.3 mg/dL mg/dL (0.1-1.4) Conjugated Bilirubin 0.3 mg/dL mg/dL (0.0-0.5) Unconjugated Bilirubin 0.0 mg/dL mg/dL (0.0-1.1) AST 27 IU/L IU/L (17-59) ALT 26 IU/L IU/L (21-72) Alkaline Phosphatase 109 IU/L IU/L (38-126) POC Troponin I Total Protein 7.7 g/dL g/dL (6.3-8.2) Albumin 4.4 g/dL g/dL (3.5-5.0) Lipase 138 IU/L IU/L (23-300) 10/21/18 19:12 WBC RBC Hgb Hct MCV MCH MCHC RDW Plt Count MPV Neut % (Auto) Lymph % (Auto) Republic % (Auto) Eos % (Auto) Baso % (Auto) Nucleat RBC Rel Count Absolute Neuts (auto) Absolute Lymphs (auto) Absolute Monos (auto) Absolute Eos (auto) Absolute Basos (auto) Absolute Nucleated RBC Immature Gran % Immature Gran # D-Dimer Sodium Potassium Chloride Carbon Dioxide Anion Gap BUN Creatinine Estimated GFR Glucose Calcium Total Bilirubin Conjugated Bilirubin Unconjugated Bilirubin AST ALT Alkaline Phosphatase POC Troponin I 0.00 ng/mL ng/mL (0.00-0.08) Total Protein Albumin Lipase Medications Given: Discontinued Medications Ketorolac Tromethamine (Toradol) 15 mg IVP EDNOW ONE Stop: 10/21/18 19:19 Last Admin: 10/21/18 19:36 Dose: 15 mg Point of Care Test Results: Chemistry 10/21/18 19:12 POC Troponin I 0.00 ng/mL ng/mL (0.00-0.08) Departure - Departure Disposition: Home, Routine, Self-Care Clinical Impression: Chest wall pain Condition: Good Instructions: Chest Pain (ED) Additional Instructions: Seek medical attention if you develop new or worsening chest pain, if you develop new or worsening shortness of breath, or any other symptoms that concern you. Referrals: [facility] [Other] - 1-2 days without fail Prescriptions: Cyclobenzaprine [Flexeril 10 MG (RX)] 10 mg PO TID #15 tab
[2018-10-21 19:24] LABS: PLATELET COUNT 177 10^3/uL (150-400)
--- NOTE | 2018-10-21 19:58 | CPEKG ---
Test Reason : OPEN Blood Pressure : / mmHG Vent. Rate : 056 BPM Atrial Rate : 055 BPM P-R Int : 111 ms QRS Dur : 096 ms QT Int : 401 ms P-R-T Axes : 026 046 015 degrees QTc Int : 387 ms Sinus rhythm Confirmed by Zach Park ([id number]) on 10/21/2018 7:57:57 PM Referred By: Zach Park Confirmed By:Zach Park
[2018-10-21 20:22] VITALS: BP 122/84
== END 2018-10-21 20:40 | disposition home or self-care (01) ==
DX: R07.89 Other chest pain (principal); I10 Essential (primary) hypertension; E78.5 Hyperlipidemia, unspecified; Z87.891 Personal history of nicotine dependence
CPT/HCPCS: 84484-ER; 96374; J1885